=== PATIENT | female | born 1975 | race Caucasian/White ===

== ENCOUNTER 2022-06-04 08:26 | Outpatient (CLI) | payer BC, OTHER ==
--- NOTE | 2022-06-04 14:19 | XRAY Report ---
PROCEDURE: Chest 2 View X-Ray INDICATIONS: ACUTE COUGH TECHNIQUE: 2 views of the chest were acquired. COMPARISON: None. FINDINGS: Surgical changes and devices: None. Lungs and pleura: No pleural effusions or pneumothorax. Lungs are clear. Mediastinum: Mediastinal contours appear normal. Heart size is normal. Bones and chest wall: No suspicious bony lesions. Overlying soft tissues appear unremarkable. IMPRESSION: No acute pulmonary process. Reviewed by: Jackie Landrum MD on 06/04/2022 2:17 PM PDT Approved by: Jackie Landrum MD on 06/04/2022 2:17 PM PDT Station ID: [id number]
== END 2022-06-04 08:27 | disposition home or self-care (01) ==
LOC: DI 08:26
PROVIDERS: ATTEND Registered Nurse
DX: R05.1 Acute cough (principal); R06.2 Wheezing

== ENCOUNTER 2022-07-09 09:33 | Outpatient (CLI) | payer OTHER ==
[2022-07-09 11:59] LABS: BASOPHILS # (AUTO) 0.1 10^3/uL (0.0-0.1); BASOPHILS % (AUTO) 0.5 %; EOSINOPHILS # (AUTO) 0.2 10^3/uL (0.0-0.7); EOSINOPHILS % (AUTO) 1.2 %; HCT - HEMATOCRIT 39.4 % (37.0-47.0); HGB - HEMOGLOBIN 12.8 g/dL (12.0-16.0); LYMPHOCYTES # (AUTO) 3.4 10^3/uL (1.5-3.5); LYMPHOCYTES % (AUTO) 24.3 %; MEAN CORPUSCULAR HEMOGLOBIN 29.1 pg (27.0-31.0); MEAN CORPUSCULAR HGB CONC 32.5 g/dL (32.0-36.0); MEAN CORPUSCULAR VOLUME 89.5 fL (81.0-99.0); MEAN PLATELET VOLUME 9.4 fL (7.9-10.8); MONOCYTES # (AUTO) 0.8 10^3/uL (0.0-1.0); MONOCYTES % (AUTO) 5.4 %; NEUTROPHILS # (AUTO) 9.3 10^3/uL (1.5-6.6); NEUTROPHILS % (AUTO) 67.5 %; PLT - PLATELET COUNT 310 10^3/uL (130-450); RED CELL DISTRIBUTION WIDTH 15.1 % (12.0-15.0); WHITE BLOOD COUNT 13.8 x10^3/uL (4.8-10.8)
[2022-07-09 12:22] LABS: ESTIMATED AVERAGE GLUCOSE 163 mg/dL (70-100); HEMOGLOBIN A1c% 7.3 % (4.27-6.07)
[2022-07-09 12:28] LABS: ALBUMIN 3.7 g/dL (3.2-5.5); ALKALINE PHOSPHATASE 69 IU/L (42-121); ALT ALANINE AMINOTRANSFERASE 35 IU/L (10-60); AST ASPARTATE AMINOTRANSFERASE 31 IU/L (10-42); BILIRUBIN,TOTAL 0.6 mg/dL (0.2-1.0); BUN - BLOOD UREA NITROGEN 9 mg/dL (6-20); CALCIUM 8.9 mg/dL (8.5-10.3); CARBON DIOXIDE - CO2 26 mmol/L (21-32); CHLORIDE 102 mmol/L (101-111); CHOLESTEROL 188 mg/dL; CREATININE 0.6 mg/dL (0.4-1.0); GFR - MDRD 108 (>89); GLUCOSE 168 mg/dL (70-100); HDL CHOLESTEROL 47 mg/dL; LDL CHOLESTEROL,CALCULATED 71 mg/dL; LDL/HDL RATIO 1.5 (<4.4); SODIUM 134 mmol/L (135-145); TOTAL PROTEIN 7.5 g/dL (6.7-8.2); TRIGLYCERIDES 351 mg/dL; URIC ACID 8.3 mg/dL (2.6-7.2); VLDL CHOLESTEROL 70 mg/dL
[2022-07-09 12:29] LABS: THYROID STIMULATING HORMONE 1.43 uIU/mL (0.34-5.60)
== END 2022-07-09 09:34 | disposition home or self-care (01) ==
LOC: LAB.N 09:33
PROVIDERS: ATTEND Physician Assistant
DX: R73.01 Impaired fasting glucose (principal); M10.9 Gout, unspecified; Z13.9 Encounter for screening, unspecified
CPT/HCPCS: 36415; 80053; 80061; 83036; 83721; 84443; 84550; 85025

== ENCOUNTER 2022-07-15 09:09 | Outpatient (CLI) | payer BC, OTHER ==
--- NOTE | 2022-07-16 08:57 | Mammography Report ---
BILATERAL DIGITAL SCREENING MAMMOGRAM 3D/2D: 07/15/2022 CLINICAL: Baseline exam. Routine screening. No prior exams were available for comparison. Both breasts are heterogeneously dense, which may obscure small masses (category c / 51-75% glandular tissue). There is a 2.1 cm x 2.4 cm mass in the left breast middle depth superior region seen on the mediolate ral oblique view only. No other significant masses, calcifications, or other findings are seen in either breast. IMPRESSION: INCOMPLETE: NEEDS ADDITIONAL IMAGING EVALUATION The 2.1 cm x 2.4 cm mass in the left breast most likely is fibroglandular tissue and is indeterminate . Additional views with possible ultrasound are recommended. Based on Tyrer-Cuzick model (a risk assessment model), the patient's lifetime risk is 21.0% and her 1 0 year risk is 4.1%. If a patient has an elevated risk, a more comprehensive evaluation should be con sidered and/or a referral to a genetic counselor. The [place] [employer], [employer], and NCCN Guidelines advise the consideration of Breast MRI as an adjunct to screening mammog emma in patients whose "Lifetime risk to develop breast cancer" is 20% or higher. This exam was interpreted at Station ID: [id number]. NOTE: For mammograms, a report in lay terms will be sent to the patient. Approximately 15% of breast malignancies will not be visualized mammographically. In the management of a palpable breast mass, a negative mammogram must not discourage biopsy of a clinically suspicious lesion. Electronically Signed By: Gregory Dhaliwal M.D. acr/:07/15/2022 12:28:09 ACR BI-RADS Category 0: Incomplete 3340F PARENCHYMAL PATTERN: (D) - The breast(s) demonstrate(s) heterogeneously dense fibroglandular parenchy ma. BI-RADS CATEGORY: (0) - 0 Mammo and US [id number] Immediate follow-up LATERALITY: (L)
== END 2022-07-15 09:10 | disposition home or self-care (01) ==
LOC: DI.N 09:09
DX: Z12.31 Encounter for screening mammogram for malignant neoplasm of breast (principal); N63.42 Unspecified lump in left breast, subareolar

== ENCOUNTER 2022-08-12 07:43 | Outpatient (CLI) | payer OTHER ==
--- NOTE | 2022-08-12 10:38 | Ultrasound Report ---
LIMITED ULTRASOUND OF LEFT BREAST: 08/12/2022 CLINICAL: Patient returns today to evaluate a focal asymmetry in the left breast. Comparison is made to exams dated: 08/12/2022 mammogram and 07/15/2022 mammogram - [facility]. Color flow ultrasound of the left breast 12 o'clock region was performed. Purcell scale images of the real-time examination were reviewed. Islands of dense breast tissue is noted. IMPRESSION: PROBABLY BENIGN There is no mass seen in the left breast to correspond with the mammography finding at 12 o'clock. O nly islands of dense breast tissue noted. A follow-up mammogram and an ultrasound in 6 months is recommended to demonstrate stability. This exam was interpreted at Station ID: [id number]. Electronically Signed By: Roger Mueller M.D. lc/:08/12/2022 08:39:12 Ultrasound BI-RADS: 3 Probably benign BI-RADS CATEGORY: (3) - 3 Mammo and [place] [id number] 6 month follow-up LATERALITY: (B)
--- NOTE | 2022-08-12 10:38 | Mammography Report ---
UNILATERAL LEFT DIGITAL DIAGNOSTIC MAMMOGRAM 3D/2D WITH SPOT COMPRESSION: 08/12/2022 CLINICAL: Patient returns today to evaluate an asymmetry in the left breast. Comparison is made to exam dated: 07/15/2022 mammogram - [facility]. The left breast is heterogeneously dense, which may obscure small masses (category c / 51-75% glandul ar tissue). There is a focal asymmetry in the left breast at 12 o'clock anterior depth. No other significant masses or calcifications are seen in the breast. IMPRESSION: INCOMPLETE: NEEDS ADDITIONAL IMAGING EVALUATION The focal asymmetry in the left breast at 12 o'clock anterior depth is indeterminate. An ultrasound is recommended. Based on Tyrer-Cuzick model (a risk assessment model), the patient's lifetime risk is 21.0% and her 1 0 year risk is 4.1%. If a patient has an elevated risk, a more comprehensive evaluation should be con sidered and/or a referral to a genetic counselor. The [place] [employer], [employer], and NCCN Guidelines advise the consideration of Breast MRI as an adjunct to screening mammog emma in patients whose "Lifetime risk to develop breast cancer" is 20% or higher. This exam was interpreted at Station ID: [id number]. NOTE: For mammograms, a report in lay terms will be sent to the patient. Approximately 15% of breast malignancies will not be visualized mammographically. In the management of a palpable breast mass, a negative mammogram must not discourage biopsy of a clinically suspicious lesion. Electronically Signed By: Roger Mueller M.D. lc/:08/12/2022 08:38:10 ACR BI-RADS Category 0: Incomplete 3340F PARENCHYMAL PATTERN: (D) - The breast(s) demonstrate(s) heterogeneously dense fibroglandular parenchy ma. BI-RADS CATEGORY: (0) - 0 Mammo and US [id number] Immediate follow-up LATERALITY: (B)
== END 2022-08-12 07:44 | disposition home or self-care (01) ==
LOC: DI 07:43
PROVIDERS: ATTEND Physician Assistant
DX: R92.8 Other abnormal and inconclusive findings on diagnostic imaging of breast (principal)

== ENCOUNTER 2022-08-17 06:56 | Outpatient (CLI) | payer OTHER ==
--- NOTE | 2022-08-17 14:11 | Ultrasound Report ---
PROCEDURE: Pelvic w/Transvaginal, ultrasound INDICATIONS: DYSMENORRHEA TECHNIQUE: Real-time scanning was performed of the pelvic organs, with image documentation. Additional endovagi nal scanning was necessary due to incomplete visualization of the adnexal and endometrial structures by transabdominal scanning. COMPARISON: None. FINDINGS: Uterus: Uterus is anteverted and normal in size at 9.4 x 4.6 x 4.6 cm. The myometrium is heterogeno us. The endometrium measures 7.3 mm in combined thickness. Ovaries: Neither ovary visualized. No free fluid or adnexal mass. Other: No pathologic free abdominal or pelvic fluid. Study is limited by patient body habitus IMPRESSION: Limited but unremarkable ultrasound of the pelvis. Reviewed by: Armando Shafer MD on 08/17/2022 1:09 PM YADI Approved by: Armando Shafer MD on 08/17/2022 1:09 PM YADI Station ID: [id number]
== END 2022-08-17 06:57 | disposition home or self-care (01) ==
LOC: DI 06:56
PROVIDERS: ATTEND Physician Assistant
DX: N94.6 Dysmenorrhea, unspecified (principal); R87.619 Unspecified abnormal cytological findings in specimens from cervix uteri

== ENCOUNTER 2022-10-16 16:28 | Outpatient (CLI) | payer OTHER ==
[2022-10-16 21:01] LABS: BASOPHILS # (AUTO) 0.1 10^3/uL (0.0-0.1); BASOPHILS % (AUTO) 0.6 %; EOSINOPHILS # (AUTO) 0.3 10^3/uL (0.0-0.7); EOSINOPHILS % (AUTO) 1.6 %; HCT - HEMATOCRIT 40.1 % (37.0-47.0); HGB - HEMOGLOBIN 12.3 g/dL (12.0-16.0); LYMPHOCYTES # (AUTO) 4.4 10^3/uL (1.5-3.5); LYMPHOCYTES % (AUTO) 27.9 %; MEAN CORPUSCULAR HEMOGLOBIN 28.1 pg (27.0-31.0); MEAN CORPUSCULAR HGB CONC 30.7 g/dL (32.0-36.0); MEAN CORPUSCULAR VOLUME 91.8 fL (81.0-99.0); MEAN PLATELET VOLUME 9.4 fL (7.9-10.8); MONOCYTES # (AUTO) 0.8 10^3/uL (0.0-1.0); MONOCYTES % (AUTO) 5.4 %; NEUTROPHILS % (AUTO) 63.8 %; PLT - PLATELET COUNT 341 10^3/uL (130-450); RED BLOOD COUNT 4.37 10^6/uL (4.20-5.40); RED CELL DISTRIBUTION WIDTH 15.2 % (12.0-15.0); WHITE BLOOD COUNT 15.6 x10^3/uL (4.8-10.8)
[2022-10-16 21:16] LABS: BUN - BLOOD UREA NITROGEN 16 mg/dL (6-20); CALCIUM 9.7 mg/dL (8.5-10.3); CARBON DIOXIDE - CO2 26 mmol/L (21-32); CHLORIDE 101 mmol/L (101-111); CHOL/HDL RATIO 4.4 (<4.4); CHOLESTEROL 173 mg/dL; CREATININE 0.7 mg/dL (0.6-1.3); GFR - MDRD 90 (>89); GLUCOSE 156 mg/dL (74-104); HDL CHOLESTEROL 39 mg/dL; LDL CHOLESTEROL,CALCULATED 65 mg/dL; LDL/HDL RATIO 1.7 (<4.4); POTASSIUM 4.2 mmol/L (3.5-4.5); SODIUM 137 mmol/L (135-145); TRIGLYCERIDES 344 mg/dL (48-352); URIC ACID 9.9 mg/dL (2.3-6.6); VLDL CHOLESTEROL 69 mg/dL
[2022-10-16 21:34] LABS: CREATININE,URINE 170.8 mg/dL; MICROALBUM/CREATININE RATIO,UR 83.7 ug/mg (<30.0); MICROALBUMIN,URINE 14.3 mg/dL
[2022-10-17 05:14] LABS: ESTIMATED AVERAGE GLUCOSE 163 mg/dL (70-100); HEMOGLOBIN A1c% 7.3 % (4.27-6.07)
== END 2022-10-16 16:29 | disposition home or self-care (01) ==
LOC: LAB.N 16:28
PROVIDERS: ATTEND Physician Assistant
DX: E11.9 Type 2 diabetes mellitus without complications (principal); E78.1 Pure hyperglyceridemia; E79.0 Hyperuricemia without signs of inflammatory arthritis and tophaceous disease; D72.829 Elevated white blood cell count, unspecified
CPT/HCPCS: 36415; 80048; 80061; 82043; 82570; 83036; 83721; 84550; 85025

== ENCOUNTER 2022-11-16 07:56 | Outpatient (CLI) | payer OTHER ==
[2022-11-16 12:39] LABS: RHEUMATOID FACTOR NEGATIVE (Negative)
[2022-11-16 12:40] LABS: CREATININE,URINE 201.2 mg/dL; MICROALBUM/CREATININE RATIO,UR 7.5 ug/mg (<30.0); MICROALBUMIN,URINE 1.5 mg/dL
[2022-11-18 14:09] LABS: ANTINUCLEAR ANTIBODIES IFA Negative (.)
== END 2022-11-16 07:57 | disposition home or self-care (01) ==
LOC: LAB.N 07:56
PROVIDERS: ATTEND Physician Assistant
DX: E79.0 Hyperuricemia without signs of inflammatory arthritis and tophaceous disease (principal); R80.9 Proteinuria, unspecified; M25.50 Pain in unspecified joint
CPT/HCPCS: 36415; 82043; 82570; 84550; 86038; 86430

== ENCOUNTER 2023-01-22 08:43 | Outpatient (CLI) | payer OTHER ==
[2023-01-22 13:24] LABS: BASOPHILS # (AUTO) 0.1 10^3/uL (0.0-0.1); BASOPHILS % (AUTO) 0.6 %; EOSINOPHILS # (AUTO) 0.2 10^3/uL (0.0-0.7); EOSINOPHILS % (AUTO) 1.6 %; HCT - HEMATOCRIT 39.4 % (37.0-47.0); HGB - HEMOGLOBIN 12.1 g/dL (12.0-16.0); LYMPHOCYTES # (AUTO) 3.6 10^3/uL (1.5-3.5); LYMPHOCYTES % (AUTO) 26.3 %; MEAN CORPUSCULAR HEMOGLOBIN 27.4 pg (27.0-31.0); MEAN CORPUSCULAR HGB CONC 30.7 g/dL (32.0-36.0); MEAN CORPUSCULAR VOLUME 89.1 fL (81.0-99.0); MEAN PLATELET VOLUME 9.1 fL (7.9-10.8); MONOCYTES # (AUTO) 0.7 10^3/uL (0.0-1.0); MONOCYTES % (AUTO) 5.3 %; NEUTROPHILS % (AUTO) 65.5 %; PLT - PLATELET COUNT 334 10^3/uL (130-450); RED BLOOD COUNT 4.42 10^6/uL (4.20-5.40); RED CELL DISTRIBUTION WIDTH 15.6 % (12.0-15.0); WHITE BLOOD COUNT 13.8 x10^3/uL (4.8-10.8)
[2023-01-22 13:27] LABS: CALCIUM 9.6 mg/dL (8.5-10.3); CREATININE 0.7 mg/dL (0.6-1.3); CRP - C-REACTIVE PROTEIN 1.4 mg/dL (<0.5); POTASSIUM 4.1 mmol/L (3.5-4.5)
[2023-01-22 13:32] LABS: ESTIMATED AVERAGE GLUCOSE 148 mg/dL (70-100); HEMOGLOBIN A1c% 6.8 % (4.27-6.07)
== END 2023-01-22 08:44 | disposition home or self-care (01) ==
LOC: LAB.N 08:43
PROVIDERS: ATTEND Physician Assistant
DX: E11.9 Type 2 diabetes mellitus without complications (principal); E79.0 Hyperuricemia without signs of inflammatory arthritis and tophaceous disease; D72.829 Elevated white blood cell count, unspecified
CPT/HCPCS: 36415; 80048; 83036; 84550; 85025; 85651; 86140

== ENCOUNTER 2023-03-05 08:45 | Outpatient (CLI) | payer OTHER ==
--- NOTE | 2023-03-08 10:13 | Mammography Report ---
UNILATERAL LEFT DIGITAL DIAGNOSTIC MAMMOGRAM 3D/2D WITH EXAGGERATED CC: 03/05/2023 CLINICAL: Patient returns for a 6 month follow up of the left breast. Comparison is made to exams dated: 08/12/2022 mammogram and 07/15/2022 mammogram - [facility]. The left breast is heterogeneously dense, which may obscure small masses (category c / 51-75% glandul ar tissue). The previously described focal asymmetry in the left breast at 12 o'clock anterior depth. This is no t significantly changed and was not seen on the prior ultrasound. No other significant masses or calcifications are seen in the breast. IMPRESSION: INCOMPLETE: NEEDS ADDITIONAL IMAGING EVALUATION The focal asymmetry in the left breast at 12 o'clock anterior depth resembles fibroglandular tissue a nd is indeterminate. An ultrasound is recommended to confirm no interval development of sonographic correlate. This is scheduled to immediately follow this exam. Based on Tyrer-Cuzick model (a risk assessment model), the patient's lifetime risk is 21.1% and her 1 0 year risk is 4.3%. If a patient has an elevated risk, a more comprehensive evaluation should be con sidered and/or a referral to a genetic counselor. The [place] [employer], [employer] [employer], and NCCN Guidelines advise the consideration of Breast MRI as an adjunct to screening mammog emma in patients whose "Lifetime risk to develop breast cancer" is 20% or higher. This exam was interpreted at Station ID: [id number]. NOTE: For mammograms, a report in lay terms will be sent to the patient. Approximately 15% of breast malignancies will not be visualized mammographically. In the management of a palpable breast mass, a negative mammogram must not discourage biopsy of a clinically suspicious lesion. Electronically Signed By: John Johnston M.D. aty/:03/05/2023 09:29:27 ACR BI-RADS Category 0: Incomplete 3340F PARENCHYMAL PATTERN: (D) - The breast(s) demonstrate(s) heterogeneously dense fibroglandular parenchy ma. BI-RADS CATEGORY: (0) - 0 Ultrasound [id number] Immediate follow-up LATERALITY: (L)
--- NOTE | 2023-03-08 10:13 | Ultrasound Report ---
LIMITED ULTRASOUND OF LEFT BREAST: 03/05/2023 CLINICAL: Patient returns today to evaluate an asymmetry in the left breast. Comparison is made to exams dated: 03/05/2023 mammogram, 08/12/2022 ultrasound, 08/12/2022 mammogram, a nd 07/15/2022 mammogram - [facility]. Color flow and real-time ultrasound of the left breast 12 o'clock region were performed. Purcell scale images of the real-time examination were reviewed. No significant abnormalities were seen sonographically in the left breast. Redemonstration of multiple areas of dense fibroglandular tissue without definite, measurable mass le sions. Mild shadowing seen near the 3 o'clock position on harmonics only likely related to artifact a t the interface between dense fibroglandular tissue and coopers ligaments. No areas of suspicious dis turbed parenchymal architecture. IMPRESSION: PROBABLY BENIGN No sonographic abnormalities identified to correlate with stable left breast asymmetry anterior depth likely representing dense fibroglandular tissue. A follow-up left mammogram and an ultrasound in 6 months is recommended to demonstrate stability. Findings and recommendations were conveyed to the patient during today's evaluation. This exam was interpreted at Station ID: [id number]. Electronically Signed By: John Johnston M.D. aty/:03/05/2023 09:47:26 Ultrasound BI-RADS: 3 Probably benign BI-RADS CATEGORY: (3) - 3 Mammo and [place] [id number] 6 month follow-up LATERALITY: (L)
== END 2023-03-05 08:46 | disposition home or self-care (01) ==
LOC: DI 08:45
PROVIDERS: ATTEND Physician Assistant
DX: R92.8 Other abnormal and inconclusive findings on diagnostic imaging of breast (principal); R92.332 Mammographic heterogeneous density, left breast

== ENCOUNTER 2023-05-10 08:48 | Outpatient (CLI) | payer OTHER ==
[2023-05-10 12:29] LABS: CALCIUM 9.9 mg/dL (8.5-10.3); CREATININE 0.9 mg/dL (0.6-1.3); POTASSIUM 4.1 mmol/L (3.5-4.5)
[2023-05-10 12:31] LABS: ESTIMATED AVERAGE GLUCOSE 131 mg/dL (70-100); HEMOGLOBIN A1c% 6.2 % (4.27-6.07)
[2023-05-10 12:56] LABS: MICROALBUM/CREATININE RATIO,UR 7.9 ug/mg (<30.0); MICROALBUMIN,URINE 1.7 mg/dL
== END 2023-05-10 08:49 | disposition home or self-care (01) ==
LOC: LAB.N 08:48
PROVIDERS: ATTEND Physician Assistant
DX: E11.9 Type 2 diabetes mellitus without complications (principal); D72.829 Elevated white blood cell count, unspecified; R80.9 Proteinuria, unspecified
CPT/HCPCS: 36415; 80048; 82043; 82533; 82570; 83036

== ENCOUNTER 2023-05-13 12:10 | Outpatient (CLI) | payer OTHER ==
--- NOTE | 2023-05-13 12:39 | XRAY Report ---
PROCEDURE: Lumbar Spine 2-3V INDICATIONS: NECK AND LOW BACK PAIN TECHNIQUE: 3 views of the lumbar spine were acquired. COMPARISON: None. FINDINGS: Bones: 5 [id number] vertebrae are present. There is normal bony alignment. No vertebral body compression fractures. No suspicious bony lesions. Minimal scattered areas of early degenerative ch daniela. Soft tissues: Overlying bowel gas pattern is normal. No suspicious soft tissue calcifications. IMPRESSION: Minimal scattered areas of early degenerative change. Reviewed by: Jackie Landrum MD on 05/13/2023 12:37 PM PDT Approved by: Jackie Landrum MD on 05/13/2023 12:37 PM PDT Station ID: [id number]
--- NOTE | 2023-05-13 12:39 | XRAY Report ---
PROCEDURE: Cervical Spine 2-3V INDICATIONS: NECK AND LOW BACK PAIN TECHNIQUE: 4 view(s) of the cervical spine were acquired. COMPARISON: None. FINDINGS: Bones: No fractures or dislocations to the C7-T1 level. The lateral masses of C1 appear intact on t he odontoid view. No suspicious bony lesions. There is reversal cervical curvature with near comple te fusion at C5-6. Moderate to severe disc space narrowing is present at C6-7. Multilevel uncovertebr al hypertrophy. Soft tissues: No prevertebral soft tissue swelling. IMPRESSION: Reversal cervical with near complete osseous fusion at C5-6. Reviewed by: Jackie Landrum MD on 05/13/2023 12:38 PM PDT Approved by: Jackie Landrum MD on 05/13/2023 12:38 PM PDT Station ID: [id number]
== END 2023-05-13 12:11 | disposition home or self-care (01) ==
LOC: DI.S 12:10
PROVIDERS: ATTEND Chiropractor
DX: M47.816 Spondylosis without myelopathy or radiculopathy, lumbar region (principal); M43.22 Fusion of spine, cervical region